=== PATIENT | male | born 1960 | race Caucasian/White ===

== ENCOUNTER → 2016-09-02 | Outpatient (CLI) | payer OTHER ==
--- NOTE | 2016-09-02 15:51 | XR ---
EXAMINATION TYPE: XR chest 2V DATE OF EXAM: 09/02/2016 3:44 PM COMPARISON: NONE HISTORY: Positive PPD skin test. TECHNIQUE: Frontal and lateral views of the chest are obtained. FINDINGS: There is low lung volumes with elevated left hemidiaphragm. There is no focal air space [place] city, pleural effusion, or pneumothorax seen. The cardiac silhouette size is enlarged. The osseous structures are intact. IMPRESSION: Cardiomegaly without acute pulmonary process.
== END | disposition home or self-care (01) ==
LOC: RADXRMAIN 15:29
PROVIDERS: ATTEND Dermatology MOHS-Micrographic Surgery
DX: I51.7 Cardiomegaly (principal); R76.11 Nonspecific reaction to tuberculin skin test without active tuberculosis
CPT/HCPCS: 71020

== ENCOUNTER → 2017-08-23 | Outpatient (CLI) | payer BC, OTHER ==
--- NOTE | 2017-08-23 22:36 | XR ---
EXAMINATION TYPE: XR abdomen 1V DATE OF EXAM: 08/23/2017 CLINICAL DATA: 56-year-old male follow-up left kidney stone, [facility] COMPARISON: None FINDINGS: Nonobstructive bowel gas pattern. Supine imaging limited for assessment of free air. A rounded phlebo lith is present on each side in the pelvis. Tiny 4 mm calcification left mid abdomen probably a left renal calculus. Mild stool burden. IMPRESSION: Suspected 4 mm left renal calculus. A rounded phlebolith is seen on each side of the pelvis.
== END | disposition home or self-care (01) ==
LOC: RADXRYALE 15:56
PROVIDERS: ATTEND Urology
DX: N20.0 Calculus of kidney (principal)
CPT/HCPCS: 74018

== ENCOUNTER → 2017-10-26 | Outpatient (CLI) | payer BC, OTHER ==
--- NOTE | 2017-10-27 06:36 | XR ---
EXAMINATION TYPE: XR KUB DATE OF EXAM: 10/26/2017 4:37 PM CLINICAL HISTORY: Left-sided kidney stone TECHNIQUE: Two supine KUB images of the abdomen are obtained. COMPARISON: Abdominal x-ray August 23, 2017 FINDINGS: There is stable 4 mm calculus mid pole left kidney at L1 level just below left 11th rib. Sy mmetric rounded densities in pelvis favor phleboliths. No significant change from prior. There is some paucity of bowel gas, visualized gas is noted in nondistended small and large bowel loo ps. Some spurring inferior L2 and L3 endplates is present. IMPRESSION: Suspect stable 4 mm left renal calculus.
== END | disposition home or self-care (01) ==
LOC: RADXRMAIN 16:19
PROVIDERS: ATTEND Urology
DX: N20.0 Calculus of kidney (principal)
CPT/HCPCS: 74018

== ENCOUNTER → 2017-11-25 | Outpatient (CLI) | payer BC, OTHER ==
--- NOTE | 2017-11-25 12:50 | MR ---
MR sacroiliac joints HISTORY: Sacroiliitis, pain Multiplanar multisequence imaging obtained through the sacroiliac joints Comparison to abdomen 10/26/2017 There is low intensity focus within the posterior left ilium on T1 and T2-weighted sequences which co rresponds to the sclerotic focus on plain film and possibly representing bone island, there is no loc al marrow edema. Sacroiliac joints show no erosion, ankylosis, or significant subchondral reactive ma rrow signal change. There is a posterior central disc herniation present at L5-S1 possibly contact the proximal S1 nerve roots bilaterally. There is a focus of increased signal on T1, low signal on T2-weighted sequences wi thin the left aspect of the L5 vertebral body measuring approximately 11 mm which may represent heman gioma. IMPRESSION: Degenerative disc disease, correlate for S1 radiculopathy. Benign-appearing foci within t he L5 vertebral body, left ilium, bone scan may be confirmatory. Sacroiliitis is not evident.
== END | disposition home or self-care (01) ==
LOC: RADMRIMAIN 09:43
PROVIDERS: ATTEND Physician Assistant Medical
DX: M51.36 Other intervertebral disc degeneration, lumbar region (principal); R93.7 Abnormal findings on diagnostic imaging of other parts of musculoskeletal system
CPT/HCPCS: 72195

== ENCOUNTER → 2019-04-24 | Outpatient (CLI) | payer BC ==
--- NOTE | 2019-04-25 07:26 | XR ---
EXAMINATION TYPE: XR lumbosacral spine min 4V DATE OF EXAM: 04/24/2019 CLINICAL HISTORY: Low back pain TECHNIQUE: Frontal, lateral, and oblique images of the lumbar spine are obtained. COMPARISON: None FINDINGS: There are 5 lumbar type vertebral bodies identified. Rudimentary 12th ribs are seen. The lumbar spine shows satisfactory alignment without evidence of acute fracture or dislocation. Vertebra l body heights and disk space heights are within normal limits. Mild multilevel degenerative changes are seen as intervertebral disc space narrowing at L5-S1 and mild multilevel facet arthropathy The o blique images appear within normal limits. The overlying soft tissue appears unremarkable. IMPRESSION: No acute fracture or dislocation is seen in the lumbar spine. Mild multilevel degenerati ve disc disease of the lumbar spine.
--- NOTE | 2019-04-25 07:40 | XR ---
EXAMINATION TYPE: XR cervical spine comp DATE OF EXAM: 04/24/2019 TECHNIQUE: Frontal, lateral, oblique, swimmers, and open mouth view of the cervical spine are obtaine d. HISTORY: M54.2 Cervicalgia COMPARISON: None FINDINGS: The cervical spine is visualized in its entirety from C1 thru the top of T1 level, it is s atisfactory in alignment without evidence of acute fracture or dislocation. The C1-C2 articulation is within normal limits on the open mouth view. Small anterior osteophytes are seen of the cervical spi ne at multiple levels as well as mild uncovertebral hypertrophy. Oblique images demonstrate mild neur al foraminal narrowing on the right at C4-C5 and centrally at C5-C6 and on the left at C6-C7 mildly. Prevertebral soft tissues are upper limits of normal. IMPRESSION: No acute fracture or malalignment is seen in the cervical spine. Mild multilevel degener ative disc disease as detailed above.
== END | disposition home or self-care (01) ==
LOC: RADXRMAIN 15:51
PROVIDERS: ATTEND Internal Medicine
DX: M48.02 Spinal stenosis, cervical region (principal); M50.30 Other cervical disc degeneration, unspecified cervical region; M51.36 Other intervertebral disc degeneration, lumbar region
CPT/HCPCS: 72050; 72110

== ENCOUNTER → 2019-05-08 | Outpatient (CLI) | payer BC ==
--- NOTE | 2019-05-09 07:10 | CT ---
EXAMINATION TYPE: CT soft tissue neck wo/w con DATE OF EXAM: 05/08/2019 HISTORY: enlarged lymph nodes. Cervicalgia and cough. COMPARISON: NONE CT DLP: 1401.5 mGycm. Automated Exposure Control for Dose Reduction was Utilized. TECHNIQUE: CT scan of the neck is performed without and with IV Contrast, patient injected with 100 mL of Isovue 300, axial images are obtained, coronal and sagittal reformatted images are reviewed. FINDINGS: Airway: No gross abnormality seen. Parotid/submandibular glands: No gross abnormality seen. Carotid/Vascular Structures: No significant abnormality. Osseous Structures: Slight scoliotic curvature. Other: Scattered prominent but subcentimeter lymph nodes throughout the neck bilaterally. No definiti ve abnormal greater than 1 cm lymph nodes. IMPRESSION: No suspicious mass or adenopathy.
== END ==
LOC: RADCTMAIN 16:31
PROVIDERS: ATTEND Internal Medicine
DX: R59.0 Localized enlarged lymph nodes (principal)
CPT/HCPCS: 70492; Q9967

== ENCOUNTER → 2019-05-21 | Outpatient (CLI) | payer BC ==
--- NOTE | 2019-05-21 15:17 | XR ---
EXAMINATION TYPE: XR chest 2V DATE OF EXAM: 05/21/2019 COMPARISON: 09/02/2016 HISTORY: Cough and shortness of breath TECHNIQUE: Frontal and lateral views of the chest are obtained. FINDINGS: Low lung volumes are redemonstrated. Low lung volumes exaggerate the pulmonary vasculature. There is no focal air space opacity, pleural effusion, or pneumothorax seen. The cardiac silhouette size is mildly enlarged. The osseous structures are intact. IMPRESSION: Low lung volumes accentuating the pulmonary vasculature. No acute cardiopulmonary proces s.
== END | disposition home or self-care (01) ==
LOC: RADXRMAIN 14:58
PROVIDERS: ATTEND Internal Medicine
DX: R05 Cough (principal); R06.02 Shortness of breath; R50.9 Fever, unspecified
CPT/HCPCS: 71046

== ENCOUNTER → 2019-06-11 | Outpatient (CLI) | payer BC ==
--- NOTE | 2019-06-11 11:35 | CT ---
EXAMINATION TYPE: CT soft tissue neck w con DATE OF EXAM: 06/11/2019 HISTORY: Rt neck swelling, lymphadenopathy per order COMPARISON: CT neck May 08, 2019 CT DLP: 639.9 mGycm. Automated Exposure Control for Dose Reduction was Utilized. TECHNIQUE: CT scan of the neck is performed with IV Contrast, patient injected with 100 mL of Isovue 300, axial images are obtained, coronal and sagittal reformatted images are reviewed. FINDINGS: Airway: No gross abnormality seen. Parotid/submandibular glands: No gross abnormality seen. Carotid/Vascular Structures: No significant plaque or stenosis carotid bulb level bilaterally Osseous Structures: Mild disc space narrowing lower cervical levels. Other: Prominent but subcentimeter lymph nodes throughout the neck bilaterally. No definitive greater than 1 cm neck adenopathy. No significant change from prior study. IMPRESSION: No significant new abnormality is seen. No definitive new abnormal adenopathy.
== END | disposition home or self-care (01) ==
LOC: RADCTMAIN 09:29
PROVIDERS: ATTEND Internal Medicine Hematology & Oncology
DX: R59.0 Localized enlarged lymph nodes (principal); J30.1 Allergic rhinitis due to pollen
CPT/HCPCS: 70491; Q9967

== ENCOUNTER → 2019-06-28 | Outpatient (CLI) | payer BC, OTHER ==
--- NOTE | 2019-06-28 18:33 | CONS ---
CONSULTATION DATE OF SERVICE: 06/28/2019 This patient is a 58-year-old gentleman who has been evaluated in the sleep center for possible obstructive sleep apnea-hypopnea syndrome. HISTORY OF PRESENT ILLNESS/SLEEP-WAKE EVALUATION: Patient's usual sleep schedule on weekdays is from 10:45 p.m. to 6 a.m., on weekends from 11:30 p.m. to 7:15 a.m. It takes him about 15 minutes to fall asleep. Usually no significant problems. No TV in bedroom. He usually sleeps on the side position by himself, so no clear information about his breathing and snoring during sleep. He wakes up from sleep 3 times with dry mouth, heartburn and nocturia. During the day sometimes the patient may feel sleepiness. [place] Sleepiness Scale is in normal range at 4. PAST MEDICAL HISTORY: Positive for hypertension, BPH, acid reflux, anxiety, psoriasis, allergies, psoriatic arthritis of the neck, back and feet. PAST SURGICAL HISTORY: Tonsillectomy, bilateral arthroscopic knee surgery, bilateral shoulder surgery and bilateral foot surgery. MEDICATIONS: Atenolol, Vasotec, cetirizine, omeprazole, tamsulosin, gabapentin, baby aspirin, Centrum Silver, injections. SOCIAL HISTORY: Negative for smoking. Alcohol consumption negative. FAMILY HISTORY: Hypertension, arthritis, sinus problems, bronchitis, acid reflux. REVIEW OF SYSTEMS: Multiple awakenings from sleep, itching. PHYSICAL EXAMINATION: GENERAL: A pleasant gentleman without distress. VITAL SIGNS: BP 120/79, HR 64, RR 16, height 6 feet 1 inch, weight 327, BMI 43.1, temperature 98.0, oxygen saturation at room air 98%. HEENT: PERRLA, EOMI. Evaluation of oropharynx showed tongue protrudes midline. Extremely low position of soft palate. Mallampati IV. Restriction of nasal breathing. NECK: Supple. No JVD. Thyroid is not palpable. Wide neck; 18-1/2 inches in circumference. LUNGS: Clear to percussion and to auscultation. Good air exchange. No wheezing or rhonchi. HEART: S1, S2 regular. No murmurs, gallops or rubs. ABDOMEN: Obese. EXTREMITIES: No clubbing or cyanosis. Psoriatic plaques on the skin. One plus bilateral ankle edema. Some deformity of the fingers, mostly on the left side. IMPRESSION: 1. No information about snoring; patient sleeps by himself. Multiple awakenings from sleep with nocturia, extremely low position of soft palate, Mallampati IV, wide neck, 18-1/2 inches in circumference; obstructive sleep apnea-hypopnea syndrome. 2. Obesity; body mass index 43.1. 3. Hypertension. 4. Benign prostatic hypertrophy. 5. Acid reflux. 6. Allergies. 7. History of anxiety. 8. Psoriasis of the skin. 9. History of psoriatic arthritis of the neck, back, feet and arms. 10.Status post tonsillectomy. 11.Status post bilateral arthroscopic knee surgery. 12.Status post bilateral arthroscopic shoulder surgery. 13.Status post bilateral arthroscopic foot surgery. 14.Deformity of the arms. PLAN: 1. Polysomnography for evaluation of patient's breathing during sleep. 2. CPAP/BiPAP titration if sleep study confirms obstructive sleep apnea-hypopnea syndrome. 3. Preferable position during sleep on the side. 4. No driving if patient feels any sleepiness. 5. I will see patient for follow up visit to explain results of testing and following plan. Thank you very much for referring this patient for consultation. Sincerely, Fred Hood MD, PhD, FAASM Diplomat of [employer] Medical Services Coordinator of [facility] [place] [facility] / JONATHAN: [id number] /
== END | disposition home or self-care (01) ==
LOC: SLEEP 14:48
PROVIDERS: ATTEND Internal Medicine
DX: I10 Essential (primary) hypertension (principal); N40.0 Benign prostatic hyperplasia without lower urinary tract symptoms; K21.9 Gastro-esophageal reflux disease without esophagitis; E66.9 Obesity, unspecified; Z79.899 Other long term (current) drug therapy; Z79.82 Long term (current) use of aspirin; Z68.41 Body mass index [BMI] 40.0-44.9, adult; Z87.2 Personal history of diseases of the skin and subcutaneous tissue; Z86.59 Personal history of other mental and behavioral disorders; Z96.611 Presence of right artificial shoulder joint; Z96.612 Presence of left artificial shoulder joint; Z96.653 Presence of artificial knee joint, bilateral; Z96.661 Presence of right artificial ankle joint; Z96.662 Presence of left artificial ankle joint
CPT/HCPCS: 99211

== ENCOUNTER 2020-05-26 09:07 | Day surgery (SDC) | payer BC ==
[2020-05-23 11:26] VITALS: BMI 38.7
[~2020-05-26 09:07] MED LIST: LACTATED RINGERS 1,000 ML IV SCH; LIDOCAINE 1% (10MG/ML) FOR IV START INTRADERMA PRN
[2020-05-26 10:15] VITALS: TEMP 97.7
[2020-05-26] MEDS ORDERED: LIDOCAINE 1% INJ 10MG/ML (20 ML MDV) ONE (11:04)
[2020-05-26] MEDS ORDERED: PROPOFOL 10 MG/ML 20 ML VIAL IV ONE (11:04)
--- NOTE | 2020-05-26 11:16 | P.PCN ---
Date of Procedure: 05/26/20 Procedure(s) Performed: BRIEF HISTORY: Patient is a 59-year-old, pleasant, male with long-standing history of GERD and Berry's esophagus and the fundus as well as upper endoscopy today. Last EGD was 2 years ago.. PROCEDURE PERFORMED: Esophagogastroduodenoscopy with biopsy. PREOPERATIVE DIAGNOSIS: Long-standing history of GERD/Berry's esophagus. IV sedation per anesthesia. PROCEDURE: After informed consent was obtained, the patient was brought into the endoscopy unit. IV sedation was administered by Anesthesia under continuous monitoring. Initially the Olympus GIF-140 video endoscope was inserted into the mouth. Esophagus intubated without any difficulty. It was gradually advanced into the stomach and duodenum and carefully examined. The bulb and the second part of the duodenum appeared normal. The scope at this time was withdrawn to the stomach, adequately insufflated with air, and upon careful examination, mucosa of the antrum, body, cardia and the fundus appeared normal. The scope was then withdrawn into the esophagus. Moderate size hiatal hernia noted. The GE junction was located at 40 cm from the incisors. There was long segment of Berry's esophagus extending from 35-40 cm from the incisors. The mucosa appeared normal with no nodules, erosions or ulcerations seen. Multiple biopsies were done from the segment of Berry's esophagus to rule out dysplasia. The rest of the esophagus appeared normal. There were no erosions or ulcerations seen and the patient tolerated the procedure well. IMPRESSION: 1. Long segment Segment Berry's esophagus extending from 35-40 cm to the incisors status post multiple biopsies to rule out dysplasia. 2. Moderate size hiatal hernia. RECOMMENDATIONS: The findings of this examination were discussed with the patient as well as his family. He was advised to follow with the biopsy results. If the biopsy confirms the presence of Berry's esophagus with no dysplasia he can have a repeat upper endoscopy in 2-3 years..
[2020-05-26 11:27] VITALS: RESP 16
[2020-05-26 11:36] VITALS: BP 130/86; PULSE 60
== END 2020-05-26 11:58 | disposition home or self-care (01) ==
LOC: ORWHC2ENDO 09:07
PROVIDERS: ATTEND Internal Medicine Gastroenterology
DX: K22.70 Barrett's esophagus without dysplasia (principal); K21.9 Gastro-esophageal reflux disease without esophagitis; K44.9 Diaphragmatic hernia without obstruction or gangrene; N40.0 Benign prostatic hyperplasia without lower urinary tract symptoms; Z98.890 Other specified postprocedural states; Z79.899 Other long term (current) drug therapy; Z79.82 Long term (current) use of aspirin; Z79.1 Long term (current) use of non-steroidal anti-inflammatories (NSAID)
CPT/HCPCS: 88305; 43239; J2001; J2704

== ENCOUNTER 2020-10-06 18:38 | Emergency (ER) | payer BC ==
[2020-10-06 18:47] VITALS: BP 134/79; PULSE 74; RESP 16
[2020-10-06] MEDS ORDERED: LIDOCAINE 1% INJ 10MG/ML (20 ML MDV) SQ ONE (19:08)
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
--- NOTE | 2020-10-06 19:43 | CT ---
EXAMINATION TYPE: CT brain wo con DATE OF EXAM: 10/06/2020 COMPARISON: None HISTORY: CT DLP: mGycm Automated exposure control for dose reduction was used. Images obtained of the brain without contrast. There is 1.5 cm hypodensity in the right internal capsule related to old lacunar infarct. There is no mass effect nor midline shift. There is no sign of intracranial hemorrhage. Calvarium is intact. Sku ll base is intact. 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 No acute intracranial abnormality.
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
== END 2020-10-06 20:48 | disposition home or self-care (01) ==
LOC: EC 18:38
DX: S01.412A Laceration without foreign body of left cheek and temporomandibular area, initial encounter (principal); K21.9 Gastro-esophageal reflux disease without esophagitis; I10 Essential (primary) hypertension; Z86.73 Personal history of transient ischemic attack (TIA), and cerebral infarction without residual deficits; W50.0XXA Accidental hit or strike by another person, initial encounter; Y93.64 Activity, baseball
CPT/HCPCS: 70486; 70450; 99284; 12001; J2001

== ENCOUNTER 2024-07-14 14:21 | Observation (INO) | payer BC ==
--- NOTE | 2024-07-14 14:37 | ED ---
General Adult HPI - General Chief complaint: Extremity Injury, Lower Stated complaint: rt ankle fracture Time Seen by Provider: 07/14/24 14:26 Source: patient, RN/MD, EMS, RN notes reviewed Mode of arrival: EMS Limitations: no limitations - History of Present Illness Initial comments: Patient is a 63-year-old male present to the emergency department as a transfer from [facility]. Patient was rafting basketball when he inverted his right ankle. Patient went there and they did notice fracture on x-ray. Patient was splinted and transferred here for orthopedic care. They did attempt to ambulate the patient with crutches however he is unable to secondary to chronic ankle problems on the other side - Related Data Home Medications Medication Instructions Recorded Confirmed Aspirin [Adult Low Dose Aspirin EC] 81 mg PO DAILY 05/23/20 05/23/20 Cetirizine HCl 10 mg PO DAILY 05/23/20 05/23/20 Enalapril Maleate 5 mg PO DAILY 05/23/20 05/23/20 Gabapentin 300 mg PO TID 05/23/20 05/23/20 Ketoconazole [Nizoral A-D] 1 applic TOPICAL DAILY 05/23/20 05/23/20 Multivit-Min/FA/Lycopen/Lutein 1 each PO DAILY 05/23/20 05/23/20 [Centrum Silver Tablet] Pantoprazole [Protonix] 40 mg PO DAILY 05/23/20 05/23/20 atenoloL 25 mg PO DAILY 05/23/20 05/23/20 Allergies Allergy/AdvReac Type Severity Reaction Status Date / Time No Known Allergies Allergy Verified 07/14/24 14:29 Review of Systems ROS Statement: Those systems with pertinent positive or pertinent negative responses have been documented in the HPI. ROS Other: All systems not noted in ROS Statement are negative. Constitutional: Denies: fever Eyes: Denies: eye pain ENT: Denies: ear pain Cardiovascular: Denies: chest pain Endocrine: Denies: fatigue Gastrointestinal: Denies: abdominal pain Neurological: Denies: headache, weakness, confusion Past Medical History Past Medical History: GERD/Reflux, Hypertension, Skin Disorder Additional Past Medical History / Comment(s): Psoriasis, Psoriatic Arthritis, fingers crooked. Wears support hose, bad circulation in legs, hx kidney stones. History of Any Multi-Drug Resistant Organisms: None Reported Additional Past Surgical History / Comment(s): EGD. Kidney stone surgery. Past Anesthesia/Blood Transfusion Reactions: Family History of Problems w/ Anesthesia Additional Past Anesthesia/Blood Transfusion Reaction / Comment(s): "Mom heart went out of rhythm." Past Psychological History: No Psychological Hx Reported Smoking Status: Never smoker Past Alcohol Use History: Rare Past Drug Use History: None Reported - Past Family History Mother Family Medical History: Cancer Additional Family Medical History / Comment(s): Bladder cancer. General Exam Limitations: no limitations General appearance: alert, in no apparent distress Head exam: Present: atraumatic Eye exam: Present: normal appearance Neck exam: Present: normal inspection. Absent: tenderness Respiratory exam: Present: normal lung sounds bilaterally Cardiovascular Exam: Present: regular rate, normal rhythm GI/Abdominal exam: Present: soft. Absent: tenderness Extremities exam: Present: other (Right lower leg splinted. Toes with good movement and sensation and cap refill) Neurological exam: Present: alert. Absent: motor sensory deficit Psychiatric exam: Present: normal affect, normal mood Skin exam: Present: normal color Course Vital Signs 07/14/24 14:24 Temperature 98 F Pulse Rate 94 Respiratory 18 Rate Blood Pressure 120/79 O2 Sat by Pulse 99 Oximetry Medical Decision Making - Medical Decision Making MDM back was pt. sent in by a medical professional or institution (, PA, BOAT WORKER, urgent care, hospital, or correction...) When possible be specific @ -Patient was sent from [facility], [place] Did you speak to anyone other than the patient for history (EMS, parent, family, police, friend...)? What history was obtained from this source @ -I did speak with transferring physician, Dr. Fall Did you review nursing and triage notes (agree or disagree)? Why? @ -I reviewed and agree with nursing and triage notes Were old charts reviewed (outside hosp., previous admission, EMS record, old EKG, old radiological studies, urgent care reports/EKG's, correction records)? Report findings @ -Chart reviewed from [facility] including films Differential Diagnosis (chest pain, altered mental status, abdominal pain women, abdominal pain men, vaginal bleeding, weakness, fever, dyspnea, syncope, headache, dizziness, GI bleed, back pain, seizure, CVA, palpatations, mental health, musculoskeletal)? @ -MDM differential EKG interpreted by me (3pts min.). @ -As above X-rays interpreted by me (1pt min.). @ -X-ray shows bimalleolar fracture CT interpreted by me (1pt min.). @ -None done U/S interpreted by me (1pt. min.). @ -None done What testing was considered but not performed or refused? (CT, X-rays, U/S, l abs)? Why? @ -None What meds were considered but not given or refused? Why? @ -None Did you discuss the management of the patient with other professionals (professionals i.e. , PA, BOAT WORKER, lab, RT, psych nurse, social research assistant, gig tender, teacher, mobile patrol officer, director case)? Give summary @ -Case discussed with Dr. Hugo send who will admit for orthopedic Was smoking cessation discussed for >3mins.? @ -No Was critical care preformed (if so, how long)? @ -No Were there social determinants of health that impacted care today? How? (Homelessness, low income, unemployed, alcoholism, drug addiction, transportation, low edu. Level, literacy, decrease access to med. care, group home, rehab)? @ -No Was there de-escalation of care discussed even if they declined (Discuss DNR or withdrawal of care, Hospice)? DNR status @ -No What co-morbidities impacted this encounter? (DM, HTN, Smoking, COPD, CAD, Cancer, CVA, ARF, Chemo, Hep., AIDS, mental health diagnosis, sleep apnea, morbid obesity)? @ -Patient unable to ambulate on his left ankle secondary to chronic ankle problems Was patient admitted / discharged? Hospital course, mention meds given and route, prescriptions, significant lab abnormalities, going to OR and other pertinent info. @ -Patient presents as transfer for ankle fracture needing orthopedics and surgery. Patient unable to ambulate and therefore will need admission. Patient updated on results and plan. Admission orders written. Undiagnosed new problem with uncertain prognosis? @ -No Drug Therapy requiring intensive monitoring for toxicity (Heparin, Nitro, Insulin, Cardizem)? @ -No Were any procedures done? @ -No Diagnosis/symptom? @ -Right ankle fracture Acute, or Chronic, or Acute on Chronic? @ -Acute Uncomplicated (without systemic symptoms) or Complicated (systemic symptoms)? @ -Complicated with inability to ambulate Side effects of treatment? @ -No Exacerbation, Progression, or Severe Exacerbation? @ -No Poses a threat to life or bodily function? How? (Chest pain, [place], [place], pneumonia, PE, COPD, DKA, ARF, appy, cholecystitis, CVA, Diverticulitis, Homicidal, Suicidal, threat to staff... and all critical care pts) @ -No Disposition Clinical Impression: Ankle fracture, right Disposition: ADMITTED IP TO THIS HOSP Is patient prescribed a controlled substance at d/c from ED?: No Referrals: Peter Lua DO [Primary Care Provider] - 1-2 days Time of Disposition: 15:03
[2024-07-14] MEDS ORDERED: LORazepam 0.5 MG TAB PO PRN (15:03)
[2024-07-14] MEDS ORDERED: NALOXONE 0.4 MG/ML 1 ML VIAL IV PRN (15:03)
[2024-07-14] MEDS ORDERED: ACETAMINOPHEN TAB 325 MG TAB PO PRN (15:03)
[2024-07-14] MEDS ORDERED: traMADol 50 MG TAB PO PRN (15:03)
[2024-07-14 15:46] LABS: Basophils % (A) 1 %; Eosinophils # (A) 0.1 k/uL (0-0.7); Eosinophils % (A) 2 %; HCT 38.9 % (39.0-53.0); HGB 12.8 gm/dL (13.0-17.5); Lymphocytes # (A) 1.6 k/uL (1.0-4.8); Lymphocytes % (A) 23 %; MCH 28.9 pg (25.0-35.0); MCHC 32.8 g/dL (31.0-37.0); MCV 87.9 fL (80.0-100.0); Mean Platelet Volume 7.1; Monocytes # (A) 0.6 k/uL (0-1.0); Monocytes % (A) 8 %; Neutrophils # (A) 4.7 k/uL (1.3-7.7); Neutrophils % (A) 65 %; Platelet Count 383 k/uL (150-450); RBC 4.42 m/uL (4.30-5.90); RDW 13.1 % (11.5-15.5); WBC 7.2 k/uL (3.8-10.6)
[2024-07-14 16:03] LABS: ALT 19 U/L (4-49); AST 18 U/L (17-59); African American GFR (CKD) >90 (>60 ml/min/1.73 sqM); Alkaline Phosphatase 86 U/L (38-126); Blood Urea Nitrogen 30 mg/dL (9-20); Calcium 9.2 mg/dL (8.4-10.2); Carbon Dioxide 24 mmol/L (22-30); Chloride 102 mmol/L (98-107); Glucose 98 mg/dL (74-99); Non-African American GFR(CKD) 83 (>60 ml/min/1.73 sqM); Potassium 3.9 mmol/L (3.5-5.1); Total Bilirubin 0.6 mg/dL (0.2-1.3); Total Protein 6.7 g/dL (6.3-8.2)
[2024-07-14 16:12] LABS: Anion Gap 9 mmol/L; Sodium 135 mmol/L (137-145)
[2024-07-14] MEDS: PANTOPRAZOLE 40 MG TABLET PO SCH (17:01)
[2024-07-14] MEDS: HYDROmorphone 1 MG/ML 1 ML SYRINGE IVP PRN (17:02)
[2024-07-14] MEDS: HYDROcodone/APAP 5-325MG 1 EACH TAB PO PRN (21:35)
[2024-07-14] MEDS: FAMOTIDINE 20 MG TAB PO SCH (21:35)
[2024-07-14] MEDS: SYMBICORT 160-4.5 MCG INHALER INHALATION SCH (21:49)
--- NOTE | 2024-07-15 07:07 | XR ---
EXAMINATION TYPE: XR chest 1V DATE OF EXAM: 07/15/2024 5:46 AM COMPARISON: Chest radiographs from 05/21/2019 TECHNIQUE: XR chest 1V Frontal view of the chest. CLINICAL INDICATION:Male, 63 years old with history of pre op; FINDINGS: Patient is rotated which limits evaluation. Lungs/Pleura: No pleural effusion or pneumothorax. Diffuse interstitial opacities. Heart/mediastinum: Cardiomediastinal silhouette is enlarged and stable. Musculoskeletal: No acute osseous pathology. IMPRESSION: Cardiomegaly with diffuse interstitial edema. Correlate for CHF exacerbations/volume overload. [facility], , 07/15/2024 7:02 AM
--- NOTE | 2024-07-15 07:47 | P.PN ---
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 It was my pleasure to have seen and examined João Larry. In our visit today we have had a chance to go over subjective complaints, physical examination findings and treatments including the natural course history without intervention and various interventional options. Their imaging demonstrates the following findings: On a physical exam, João Larry demonstrates pain with motion of RLE, which is NV intact at this time. I have explained to the patient that this fracture needs stabilization. Based on the patient's imaging, physical exam, and the rapid progression and disabling nature of her symptoms, at this time I recommend surgery in the form of a: OPEN REDUCTION AND INTERNAL FIXATION OF RIGHT ANKLE I discussed the risk and benefits of this procedure at length with [patient]. Questions were invited and answered, and the patient wishes to proceed as outlined below. Currently, I am recommendin. OPEN REDUCTION AND INTERNAL FIXATION OF RIGHT ANKLE 2. Review of surgical risks and benefits as well as an educational packet on the proposed surgical procedure. 3. Appropriate preoperative work up and clearances to be obtained. Risks: All surgical procedures come with inherent risks, including those related to positioning, anesthesia, intraoperative findings, and postoperative complications. It is important to understand that surgery does not come with any guarantee of a successful outcome as complications and adverse events are always possible. The patient was given a handout discussing the surgical procedure and risks associated with the intervention, both of which were discussed with the patient. These risks include but are not limited to the following: - Experiencing same, different or even worse symptoms compared to before surgery. - Requiring further surgery or other forms of treatment presently or at some time in the future . - On an extreme but fortunately relatively rare basis severe complications such as blindness, stroke, heart attack, temporary and/or permanent nerve injury, paralysis, coma, or may occur, sometimes without known explanation. - Surgical complications may include but are not limited to risk of infection, fluid accumulation in the surgical dissection site, including a seroma or hematoma, that requires additional surgery, wound drainage, bleeding, new numbness or weakness, vision changes/loss, spinal fluid leakage, non-healing and/or infected incision, headaches, difficulty or inability to swallow, hoarseness, hemopneumothorax, pneumothorax, injury to nerves, spinal cord, blood vessels, lymphatics or other vital organs (i.e., bowel injury, injury to the great vessels); heterotopic bone formation; complications related to the hardware such as screws, rods, including misplaced hardware, device failure, hardware fracture/breakage, or hardware loosening; retained surgical instrumentations or devices and the need for further surgery. - Medical risks of the planned surgery include but are not limited to generalized Infections to the whole body or local areas outside of the surgical site (sepsis), heart attack, bleeding, anaphylaxis, meningitis, seizure, epilepsy, hearing loss, burn lara, laceration of the head or other areas of the body, bruising, hypersensitivity of the skin, bladder over distension; allergic reaction; shoulder injury related to positioning; fat, blood and air clots to other areas of the body like heart, lungs, brain; failure of internal organs such as lungs, kidneys, liver and excessive bleeding. If blood transfusions are necessary, note that transfusions may cause intolerance reactions such as anaphylaxis or other complex reactions. Despite best efforts, the results of surgery might not heal in terms of bone, soft tissues such as skin, fascia, ligaments, and joints. [facility] has multiple operating rooms with single and overlapping rooms running daily. They currently function under the required guidelines as produced by the Senate Finance Committee with regards to the overlapping rooms and will continue to comply with changes to this policy as they occur. The requirements include and are complied with as follows: (1) the critical portions of the overlapping rooms will not occur at the same time, (2) the attending physician will be physically present during the critical portions of the procedure and immediately available during the entire case, and (3) a back-up attending is designated should the primary attending not be immediately available. The patient has had a chance to review all the listed information, has been given print outs detailing this information, and has had all his/her questions answered to their satisfaction. It was my pleasure to have seen and examinedJoão Larry. In our visit today we have had a chance to go over my understanding of our patient's current condition, the natural course history without intervention and various interventional options. Questions were invited and answered, and the patient wishes to proceed as outlined above. I have seen and examined the patient for 25 minutes and we have spent more than 50% of the time in repeat and detailed counseling about the patient's condition, its natural course history without and as much as can be predicted with surgery and re-review of various surgical tr eatment options. In conclusion, João Larry has requested we proceed with the above suggested surgery and are willing to accept risks and limitations of the suggested surgery as to the nature of the disease process and our best attempts at treatment for the condition. Thank you again for allowing us to be part of your patient's care. Please don't hesitate to contact me if you have any further questions. Signed and authenticated by: Dakotah Hamm [facility] [address], [address] [address]
--- NOTE | 2024-07-15 08:11 | P.HPOR ---
History of Present Illness H&P Date: 07/15/24 Chief Complaint: Right ankle pain after a fall History of Presenting Illness Patient is a pleasant 63-year-old male who presented as a transfer from [facility] after a fall. Imaging was performed at [facility] that demonstrated a fracture of the right ankle, patient was splinted and transferred for care. 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 Patient states he was unable to ambulate after fall, he does have chronic left ankle pain and was unable to use crutches. Patient states that he is normally independent without any assistive devices. Patient has a past medical history of hypertension and GERD. Patient denies any orthopedic history. Review of Systems Pertinent positives and negatives as discussed in HPI, a complete review of systems was performed and all other systems are negative. Physical Examination Inspection: Negative for any open fractures, limited exam due to splint. Sensation: Sensation is equal, symmetric, bilaterally intact throughout the upper and lower extremities Palpation: Tenderness to palpation over the right ankle due to fracture. Range of motion: Patient does have full range of motion bilateral upper and left lower extremities on exam. Limited range of motion of the right ankle due to fracture and pain Motor: Right: shoulder abduction 5/5, elbow flexors 5/5, wrist dorsiflexors 5/5. finger abductor 5/5, film rental clerk 5/5, hip flexor 5/5, knee flexor 4/5, ankle dorsiflexor LAKIA, ankle plantarflexion LAKIA and extensor hallucis 5/5. Left: shoulder abduction 5/5, elbow flexors 5/5, wrist dorsiflexors 5/5. finger abductor 5/5, film rental clerk 5/5, hip flexor 5/5, knee flexor 5/5, ankle dorsiflexor 5/5, ankle plantarflexion 5/5 and extensor hallucis 5/5. Special tests: Negative Homans bilaterally. Negative Jared bilaterally. Negative clonus bilaterally. Neurovascular: Radial pulse intact, 2+ bilaterally. Cap refill under 3 seconds in digits upper extremities. Assessment Fall from standing Right ankle fracture Plan At this time we recommend surgical intervention of right ankle ORIF that is scheduled for tomorrow 07/16/24. Patient will be n.p.o. at midnight. 2. Appreciate medical management 3. Pain management - IV Dilaudid, Utilize ice therapy 20min every hour as needed. 4. GI prophylaxis -senna 5. DVT prophylaxis -Lovenox will be ordered post op 6. PT/OT - NWB RLE, utilize walker 7. Appreciate consult. I reviewed and discussed this case with my attending Dr. Young, whom has reviewed this chart and films and is in agreement with assessment and plan of ca re as outlined above. I have personally seen and examined the patient, performed the documentation and the assessment and plan as written. Number of minutes spent on the visit: 30m. Past Medical History Past Medical History: GERD/Reflux, Hypertension, Skin Disorder Additional Past Medical History / Comment(s): Psoriasis, Psoriatic Arthritis, fingers crooked. Wears support hose, bad circulation in legs, hx kidney stones. History of Any Multi-Drug Resistant Organisms: None Reported Additional Past Surgical History / Comment(s): EGD. Kidney stone surgery, nose surgery Past Anesthesia/Blood Transfusion Reactions: Family History of Problems w/ Anesthesia Additional Past Anesthesia/Blood Transfusion Reaction / Comment(s): "Mom heart went out of rhythm." Past Psychological History: No Psychological Hx Reported Smoking Status: Never smoker Past Alcohol Use History: Rare Past Drug Use History: None Reported - Past Family History Mother Family Medical History: Cancer Additional Family Medical History / Comment(s): Bladder cancer. Medications and Allergies Home Medications Medication Instructions Recorded Confirmed Type Aspirin [Adult Low Dose Aspirin EC] 81 mg PO DAILY 05/23/20 07/14/24 History Gabapentin 300 mg PO DAILY 05/23/20 07/14/24 History Pantoprazole [Protonix] 40 mg PO BID 05/23/20 07/14/24 History Albuterol Inhaler [Ventolin Hfa 2 puff INHALATION RT-Q4H PRN 07/14/24 07/14/24 History Inhaler] Budesonide/Formoterol Fumarate 2 puff INHALATION RT-BID 07/14/24 07/14/24 History [Symbicort 160-4.5 Mcg Inhaler] Celecoxib [CeleBREX] 100 mg PO BID 07/14/24 07/14/24 History Cetirizine HCl [Zyrtec] 10 mg PO DAILY 07/14/24 07/14/24 History Fluticasone Nasal Draper [Flonase 1 - 2 spray EA NOSTRIL DAILY PRN 07/14/24 07/14/24 History Nasal Draper] Furosemide [Lasix] 20 mg PO DAILY 07/14/24 07/14/24 History Metaxalone [Skelaxin] 800 mg PO DAILY 07/14/24 07/14/24 History Montelukast [Singulair] 10 mg PO DAILY 07/14/24 07/14/24 History Mv-Min/Folic/K1/Lycopen/Lutein 1 tab PO DAILY 07/14/24 07/14/24 History [Centrum Silver Men Tablet] Potassium Chloride ER [K-Dur 10] 10 meq PO DAILY 07/14/24 07/14/24 History Semaglutide [Rybelsus] 7 mg PO DAILY 07/14/24 07/14/24 History Tamsulosin [Flomax] 0.4 mg PO DAILY 07/14/24 07/14/24 History Valsartan/Hydrochlorothiazide 1 tab PO DAILY 07/14/24 07/14/24 History [Valsartan-Hctz 160-12.5 mg Tab] Allergies Allergy/AdvReac Type Severity Reaction Status Date / Time No Known Allergies Allergy Verified 07/14/24 15:35 Results - Labs Labs: Abnormal Lab Results - Last 24 Hours (Table) 07/14/24 07/14/24 Range/Units 15:34 15:34 Hgb 12.8 L (13.0-17.5) gm/dL Hct 38.9 L (39.0-53.0) % Sodium 135 L (137-145) mmol/L BUN 30 H (9-20) mg/dL H & H 07/14/24 Range/Units 15:34 Hgb 12.8 L (13.0-17.5) gm/dL Hct 38.9 L (39.0-53.0) % Result Diagrams: 07/14/24 15:34 07/14/24 15:34
[2024-07-15 09:11] LABS: Basophils # (A) 0.06 X 10*3/uL (0.00-0.10); Basophils % (A) 0.8 %; Eosinophils # (A) 0.19 X 10*3/uL (0.04-0.35); Eosinophils % (A) 2.6 %; HCT 38.2 % (39.6-50.0); HGB 12.5 g/dL (13.0-17.0); Lymphocytes # (A) 1.62 X 10*3/uL (0.90-5.00); Lymphocytes % (A) 22.3 %; MCHC 32.7 g/dL (32.0-37.0); MCV 88.6 FL (80.0-97.0); Mean Platelet Volume 10.4 FL (9.5-12.2); Monocytes # (A) 1.04 X 10*3/uL (0.20-1.00); Monocytes % (A) 14.3 %; NRBC Per 100 WBC 0 X 10*3/uL (0.00-0.01); Neutrophils # (A) 4.32 X 10*3/uL (1.80-7.70); Neutrophils % (A) 59.4 %; Platelet Count 385 X 10*3/uL (140-440); RBC 4.31 X 10*6/uL (4.40-5.60); RDW 12.8 % (11.5-14.5); WBC 7.27 X 10*3/uL (4.50-10.00)
[2024-07-15] MEDS: NON FORMULARY DRUG (Semaglutide [Rybelsus] 7 MG Tablet) PO SCH (09:13)
[2024-07-15] MEDS: TAMSULOSIN 0.4 MG CAP.ER.24H PO SCH (09:20)
[2024-07-15] MEDS: GABAPENTIN 300 MG CAP PO SCH (09:20)
[2024-07-15] MEDS: CYCLOBENZAPRINE 10 MG TAB PO SCH (09:20)
[2024-07-15] MEDS: LORATADINE 10 MG TAB PO SCH (09:20)
[2024-07-15] MEDS: POTASSIUM CHLORIDE ER 10 MEQ TAB.ER.PRT PO SCH (09:21)
[2024-07-15] MEDS: hydroCHLOROthiazide 12.5 MG CAP PO SCH (09:21)
[2024-07-15] MEDS: MULTIVITAMINS, THERA 1 EACH TAB PO SCH (09:21)
[2024-07-15] MEDS: MONTELUKAST 10 MG TAB PO SCH (09:21)
[2024-07-15] MEDS: FUROSEMIDE 20 MG TAB PO SCH (09:21)
[2024-07-15] MEDS: VALSARTAN 160 MG TAB PO SCH (09:24)
[2024-07-15 09:29] LABS: BUN/Creat Ratio 22.67 Ratio (12.00-20.00); Blood Urea Nitrogen 20.4 mg/dL (9.0-27.0); Glucose 120 mg/dL (70-110)
[2024-07-15 09:30] LABS: Carbon Dioxide 25.8 mmol/L (21.6-31.8); Chloride 102 mmol/L (96-109); Potassium 3.8 mmol/L (3.5-5.5); Sodium 139 mmol/L (135-145)
--- NOTE | 2024-07-15 15:21 | P.CONS ---
History of Present Illness - Reason for Consult Consult date: 07/14/24 Medical clearance for surgery/medical management - Chief Complaint Right ankle fracture - History of Present Illness 63-year-old male present, history of hypertension, GERD, presented to the emerge ncy department as a transfer from [facility]. Patient was rafting basketball when he inverted his right ankle. Patient went there and they did notice fracture on x-ray. Patient was splinted and transferred here for orthopedic care. They did attempt to ambulate the patient with crutches however he is unable to secondary to chronic ankle problems on the other side Blood work completed in ED reveals WBC of 7.2, hemoglobin of 12.8 and platelet count of 383, sodium 135, potassium 3.9, BUNs/creatinine of 30/0.97, EKG interpreted by myself shows sinus rhythm with a rate of 98. Normal intervals. Normal axis. Normal QRS. No acute ST change. Review of Systems REVIEW OF SYSTEMS: CONSTITUTIONAL: No fever, no malaise, no fatigue. HEENT: No recent visual problems or hearing problems. Denied any sore throat. CARDIOVASCULAR: No chest pain, orthopnea, PND, no palpitations, no syncope. PULMONARY: No shortness of breath, no cough, no hemoptysis. GASTROINTESTINAL: No diarrhea, no nausea, no vomiting, no abdominal pain. NEUROLOGICAL: No headaches, no weakness, no numbness. HEMATOLOGICAL: Denies any bleeding or petechiae. GENITOURINARY: Denies any burning micturition, frequency, or urgency. MUSCULOSKELETAL/RHEUMATOLOGICAL: Denies any joint pain, swelling, or any muscle pain. ENDOCRINE: Denies any polyuria or polydipsia. The rest of the 14-point review of systems is negative. Past Medical History Past Medical History: GERD/Reflux, Hypertension, Skin Disorder Additional Past Medical History / Comment(s): Psoriasis, Psoriatic Arthritis, fingers crooked. Wears support hose, bad circulation in legs, hx kidney stones. History of Any Multi-Drug Resistant Organisms: None Reported Additional Past Surgical History / Comment(s): EGD. Kidney stone surgery, nose surgery Past Anesthesia/Blood Transfusion Reactions: Family History of Problems w/ Anesthesia Additional Past Anesthesia/Blood Transfusion Reaction / Comm: "Mom heart went out of rhythm." Past Psychological History: No Psychological Hx Reported Smoking Status: Never smoker Past Alcohol Use History: Rare Past Drug Use History: None Reported - Past Family History Mother Family Medical History: Cancer Additional Family Medical History / Comment(s): Bladder cancer. Medications and Allergies Home Medications Medication Instructions Recorded Confirmed Type Aspirin [Adult Low Dose Aspirin EC] 81 mg PO DAILY 05/23/20 07/14/24 History Gabapentin 300 mg PO DAILY 05/23/20 07/14/24 History Pantoprazole [Protonix] 40 mg PO BID 05/23/20 07/14/24 History Albuterol Inhaler [Ventolin Hfa 2 puff INHALATION RT-Q4H PRN 07/14/24 07/14/24 History Inhaler] Budesonide/Formoterol Fumarate 2 puff INHALATION RT-BID 07/14/24 07/14/24 History [Symbicort 160-4.5 Mcg Inhaler] Celecoxib [CeleBREX] 100 mg PO BID 07/14/24 07/14/24 History Cetirizine HCl [Zyrtec] 10 mg PO DAILY 07/14/24 07/14/24 History Fluticasone Nasal [place] [Flonase 1 - 2 spray EA NOSTRIL DAILY PRN 07/14/24 07/14/24 History Nasal [place]] Furosemide [Lasix] 20 mg PO DAILY 07/14/24 07/14/24 History Metaxalone [Skelaxin] 800 mg PO DAILY 07/14/24 07/14/24 History Montelukast [Singulair] 10 mg PO DAILY 07/14/24 07/14/24 History Mv-Min/Folic/K1/Lycopen/Lutein 1 tab PO DAILY 07/14/24 07/14/24 History [Centrum Silver Men Tablet] Potassium Chloride ER [K-Dur 10] 10 meq PO DAILY 07/14/24 07/14/24 History Semaglutide [Rybelsus] 7 mg PO DAILY 07/14/24 07/14/24 History Tamsulosin [Flomax] 0.4 mg PO DAILY 07/14/24 07/14/24 History Valsartan/Hydrochlorothiazide 1 tab PO DAILY 07/14/24 07/14/24 History [Valsartan-Hctz 160-12.5 mg Tab] Allergies Allergy/AdvReac Type Severity Reaction Status Date / Time No Known Allergies Allergy Verified 07/14/24 15:35 Physical Exam Vitals: Vital Signs Temp Pulse Pulse Resp BP BP Pulse Ox 07/14/24 16:45 97.5 F L 98 17 125/76 98 07/14/24 16:37 99 F 94 18 127/85 97 07/14/24 14:24 98 F 94 18 120/79 99 Intake and Output 07/14/24 07/14/24 07/14/24 06:59 14:59 22:59 Intake Total 200 Balance 200 Intake: Oral 200 Other: Weight 141.067 kg 141.067 kg General appearance: alert, in no apparent distress Head exam: Present: atraumatic Eye exam: Present: normal appearance Neck exam: Present: normal inspection. Absent: tenderness Respiratory exam: Present: normal lung sounds bilaterally Cardiovascular Exam: Present: regular rate, normal rhythm GI/Abdominal exam: Present: soft. Absent: tenderness Extremities exam: Present: other (Right lower leg splinted. Toes with good movement and sensation and cap refill) Neurological exam: Present: alert. Absent: motor sensory deficit Psychiatric exam: Present: normal affect, normal mood Skin exam: Present: normal color Results CBC & Chem 7: 07/15/24 03:58 07/15/24 03:58 Labs: Abnormal Lab Results - Last 24 Hours (Table) 07/14/24 07/14/24 Range/Units 15:34 15:34 Hgb 12.8 L (13.0-17.5) gm/dL Hct 38.9 L (39.0-53.0) % Sodium 135 L (137-145) mmol/L BUN 30 H (9-20) mg/dL Assessment and Plan Assessment: 1. Right ankle fracture -Pain control with IV Dilaudid; EKG obtained in ED and is reviewed -Orthopedic surgery is consulted; await evaluation -Patient is medically cleared to proceed with surgical intervention 2. Mild NONA; patient placed on slow IV fluid hydration; monitor renal function electrolytes; avoid nephrotoxins and hypotension 3. Asthma/COPD; not in exacerbation; continue with home dose of Symbicort along with Ventolin for rescue inhaler; Singulair 10 mg daily 4. Seasonal allergies; Flonase nasal spray along with Zyrtec 10 mg daily 5. Hypertension; valsartan/hydrochlorothiazide 160-12.5 mg daily 6. Diabetes mellitus; patient uses Rybelsus 7 mg daily; we will monitor Accu- Cheks before meals and at bedtime with insulin sliding scale 7. Gastroesophageal reflux disease; Protonix 40 mg twice daily 8. BPH; Flomax 0.4 mg daily
--- NOTE | 2024-07-15 15:22 | P.PN ---
Subjective Progress Note Date: 07/15/24 63-year-old male present, history of hypertension, GERD, presented to the emergency department as a transfer from [facility]. Patient was rafting basketball when he inverted his right ankle. Patient went there and they did notice fracture on x-ray. Patient was splinted and transferred here for orthopedic care. They did attempt to ambulate the patient with crutches however he is unable to secondary to chronic ankle problems on the other side Blood work completed in ED reveals WBC of 7.2, hemoglobin of 12.8 and platelet count of 383, sodium 135, potassium 3.9, BUNs/creatinine of 30/0.97, EKG interpreted by myself shows sinus rhythm with a rate of 98. Normal intervals. Normal axis. Normal QRS. No acute ST change. -Patient is evaluated by orthopedic surgery with plans to proceed with ORIF tomorrow morning -Patient to be placed on DVT prophylaxis postoperatively Objective - Vital Signs Vital signs: Vital Signs Temp 97.4 F L 07/15/24 07:15 Pulse 107 H 07/15/24 07:15 Resp 17 07/15/24 07:15 BP 159/92 07/15/24 07:15 Pulse Ox 95 07/15/24 07:15 FiO2 Intake & Output 07/14/24 07/15/24 07/15/24 18:59 06:59 18:59 Intake Total 500 1620 200 Output Total 850 Balance 500 770 200 Weight 141.067 kg Intake: Oral 500 1620 200 Output: Urine 850 Other: Voiding Method Urinal Urinal # Voids 5 - Exam General appearance: alert, in no apparent distress Head exam: Present: atraumatic Eye exam: Present: normal appearance Neck exam: Present: normal inspection. Absent: tenderness Respiratory exam: Present: normal lung sounds bilaterally Cardiovascular Exam: Present: regular rate, normal rhythm GI/Abdominal exam: Present: soft. Absent: tenderness Extremities exam: Present: other (Right lower leg splinted. Toes with good movement and sensation and cap refill) Neurological exam: Present: alert. Absent: motor sensory deficit Psychiatric exam: Present: normal affect, normal mood Skin exam: Present: normal color - Labs CBC & Chem 7: 07/15/24 03:58 07/15/24 03:58 Labs: Abnormal Lab Results - Last 24 Hours (Table) 07/14/24 07/14/24 07/15/24 Range/Units 15:34 15:34 03:58 RBC 4.31 L (4.40-5.60) X 10*6/uL Hgb 12.8 L 12.5 L (13.0-17.5) gm/dL Hct 38.9 L 38.2 L (39.0-53.0) % Monocytes # 1.04 H (0.20-1.00) X 10*3/uL Sodium 135 L (137-145) mmol/L BUN 30 H (9-20) mg/dL BUN/Creatinine Ratio (12.00-20.00) Ratio Glucose (70-110) mg/dL 07/15/24 Range/Units 03:58 RBC (4.40-5.60) X 10*6/uL Hgb (13.0-17.5) gm/dL Hct (39.0-53.0) % Monocytes # (0.20-1.00) X 10*3/uL Sodium (137-145) mmol/L BUN (9-20) mg/dL BUN/Creatinine Ratio 22.67 H (12.00-20.00) Ratio Glucose 120 H (70-110) mg/dL Assessment and Plan Assessment: 1. Right ankle fracture -Pain control with IV Dilaudid; EKG obtained in ED and is reviewed -Orthopedic surgery is consulted; await evaluation -Patient is medically cleared to proceed with surgical intervention 2. Mild NONA; patient placed on slow IV fluid hydration; monitor renal function electrolytes; avoid nephrotoxins and hypotension 3. Asthma/COPD; not in exacerbation; continue with home dose of Symbicort along with Ventolin for rescue inhaler; Singulair 10 mg daily 4. Seasonal allergies; Flonase nasal spray along with Zyrtec 10 mg daily 5. Hypertension; valsartan/hydrochlorothiazide 160-12.5 mg daily 6. Diabetes mellitus; patient uses Rybelsus 7 mg daily; we will monitor Accu- Cheks before meals and at bedtime with insulin sliding scale 7. Gastroesophageal reflux disease; Protonix 40 mg twice daily 8. BPH; Flomax 0.4 mg daily
[2024-07-15] MEDS ORDERED: ZINC OXIDE PASTE (Z-GUARD) 1 APPLIC TOPICAL PRN (20:42)
--- NOTE | 2024-07-16 06:35 | P.PN ---
Progress Note - Text Progress Note Date: 07/16/24 Patient seen and examined this morning. Patient is resting comfortably in bed. Patient is n.p.o. for surgical intervention later this afternoon. He states that he is looking forward to having the procedure and working towards his recovery. No acute concerns.
[2024-07-16] MEDS: IV FLUID CONTINUATION 1,000 ML IV ONE (14:09)
[2024-07-16] MEDS: LACTATED RINGERS 1,000 ML IV SCH (14:26)
[2024-07-16] MEDS: DEXAMETHASONE SOD PHOSPHATE 4 MG/ML 1 ML VIAL IVP STA (14:45)
[2024-07-16] MEDS: ONDANSETRON 4 MG/2 ML VIAL IVP PRN (14:45)
[2024-07-16] MEDS ORDERED: ceFAZolin 2 GM in SODIUM CHLORIDE 0.9% 100 ML IVPB ONE (14:45)
[2024-07-16] MEDS: MIDAZOLAM 2 MG/2 ML VIAL IV ONE (14:46)
--- NOTE | 2024-07-16 15:10 | P.ANPRN ---
Procedure Note - Anesthesia - Nerve Block Performed Right Popliteal Single Time Out Performed: Yes Date of Procedure: 07/16/24 Procedure Start Time: 14:45 Procedure Stop Time: 14:50 Location of Patient: PreOp Indication: Acute Post-Operative Pain, Analgesia, Requested by Surgeon Sedation Type: Sedate with meaningful contact maintained Preparation: Sterile Prep Position: Left Lateral Catheter: None Needle Types: Pajunk Needle Gauge: 21 Ultrasound used to visualize needle placement: Yes Ultrasound used to observe medication spread: Yes Injectate: 0.5% Ropivacaine (see comment for volume) ([id number]) Blood Aspirated: No Pain Paresthesia on Injection Noted: No Resistance on Injection: Normal Image Stored and Saved: Yes Events: Uneventful and Well Tolerated
--- NOTE | 2024-07-16 15:11 | P.ANPRN ---
Procedure Note - Anesthesia - Nerve Block Performed Right Adductor Canal Single Time Out Performed: Yes Date of Procedure: 07/16/24 Procedure Start Time: 14:50 Procedure Stop Time: 14:55 Location of Patient: PreOp Indication: Acute Post-Operative Pain, Analgesia, Requested by Surgeon Sedation Type: Sedate with meaningful contact maintained Preparation: Sterile Prep Position: Supine Catheter: None Needle Types: Pajunk Needle Gauge: 21 Ultrasound used to visualize needle placement: Yes Ultrasound used to observe medication spread: Yes Injectate: 0.5% Ropivacaine (see comment for volume) ([id number]) Blood Aspirated: No Pain Paresthesia on Injection Noted: No Resistance on Injection: Normal Image Stored and Saved: Yes Events: Uneventful and Well Tolerated
[2024-07-16] MEDS ORDERED: fentaNYL (PF) 50 MCG/ML 2 ML AMP ONE (15:18)
[2024-07-16] MEDS ORDERED: PHENYLEPHRINE 10 MG/ML VIAL ONE (15:18)
[2024-07-16] MEDS ORDERED: MIDAZOLAM 2 MG/2 ML VIAL ONE (15:18)
[2024-07-16] MEDS ORDERED: SUCCINYLCHOLINE CHLORIDE 200 MG/10 ML VIAL IV ONE (15:18)
[2024-07-16] MEDS ORDERED: DEXAMETHASONE SOD PHOSPHATE 4 MG/ML 1 ML VIAL ONE (15:18)
[2024-07-16] MEDS ORDERED: PROPOFOL 10 MG/ML 20 ML VIAL IV ONE (15:18)
[2024-07-16] MEDS: SODIUM CHLORIDE 0.9% 100 ML with ceFAZolin 2,000 MG IV ONE (15:18)
[2024-07-16] MEDS ORDERED: ROCURONIUM 10 MG/ML (5 ML VIAL) IV ONE (15:18)
[2024-07-16] MEDS ORDERED: GLYCOPYRROLATE 0.2 MG/ML 2 ML VIAL ONE (15:18)
[2024-07-16] MEDS ORDERED: LIDOCAINE 1% INJ 10MG/ML (20 ML MDV) ONE (15:18)
[2024-07-16] MEDS ORDERED: ROPIVACAINE 5 MG/ML 30 ML VIAL ONE (15:18)
[2024-07-16] MEDS ORDERED: NEOSTIGMINE 1 MG/ML 10 ML VIAL ONE (15:18)
[2024-07-16] MEDS ORDERED: NALOXONE 0.4 MG/ML 1 ML VIAL IV PRN (15:50)
--- NOTE | 2024-07-16 16:29 | P.OP ---
Date of Procedure: 07/16/24 Preoperative Diagnosis: 1. RIGHT BIMALLEOLAR ANKEL FRACTURE 2. S/P FALL FROM STANDING MULTIPLE EVENTS 3. LEFT ANKLE SPRAIN 4. COMPLEX MEDICAL PATIENT Postoperative Diagnosis: 1. RIGHT BIMALLEOLAR ANKEL FRACTURE 2. S/P FALL FROM STANDING MULTIPLE EVENTS 3. LEFT ANKLE SPRAIN 4. COMPLEX MEDICAL PATIENT Procedure(s) Performed: 1. 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 It was my pleasure to have seen and examined João Larry. In our visit today we have had a chance to go over subjective complaints, physical examination findings and treatments including the natural course history without intervention and various interventional options. Their imaging demonstrates the following findings: On a physical exam, João Larry demonstrates pain with motion of RLE, which is NV intact at this time. I have explained to the patient that this fracture needs stabilization. Based on the patient's imaging, physical exam, and the rapid progression and disabling nature of her symptoms, at this time I recommend surgery in the form of a: OPEN REDUCTION AND INTERNAL FIXATION OF RIGHT ANKLE I discussed the risk and benefits of this procedure at length with [patient]. Questions were invited and answered, and the patient wishes to proceed as outlined below. Currently, I am recommendin. OPEN REDUCTION AND INTERNAL FIXATION OF RIGHT ANKLE Description of Procedure: The patient was seen and examined in the preoperative area. All preoperative protocols were followed. Informed consent was obtained, risks and benefits of the procedure were discussed at length. Risks including bleeding infection damage to the surrounding tissue and risk of reoperation were discussed with the patient. Risk of anesthesia up to and including was discussed with the patient. These are outlined in the risk reviewed. They were willing to accept these risks and all of the risks of surgery. The patient was given a weight- based dose of antibiotics in the form of 2 g Ancef. The patient was seen and evaluated by the anesthesia team who deemed them fit for surgery. The site was marked, the patient was willing to proceed with the procedure. The patient was transferred to the operative suite by the Department of anesthesia. They were then drifted off to sleep by the department of anesthesia andGETA anesthesia was used. Once adequate anesthesia had been obtained the patient was carefully transferred to the operative bed. All bony prominences were padded accordingly. SCDs were placed on the nonoperative lower extremities. Arms were well padded. The patient's right leg was placed on a bone foam ramp and a tourniquet was placed on the patient's right upper thigh. 1015 placed around the leg. The contralateral leg was secured to the table with tape. A bump was placed under the patient's right hip. Preoperative briefing was done with the operative team and everyone was ready for the procedure to start. The patient's right leg was then prepped and draped in the normal sterile fashion. Timeout was then performed and all parties in agreement with the procedure to be performed. Leg was exsanguinated and the tourniquet inflated to 280 mmHg. Incision was made on the lateral aspect of the right ankle over the lateral malleolus and blunt dissection taken down to the fracture and fibula. Wood handle elevator was used to remove periosteum and open the space for fracture visualization and reduction. There was alot of scarring and callous formation around the fracture site which was removed and the fracture was irrigated. The fracture was reduced using traction and supination of the foot and ankle. A plate was selected and pinned to the fibula. The fracture due to the comminution and was unamendable to lag screw technique so bridge/compression plating was done. Once the plate was secured, C clamp was used to maintain the reduction to the plate and maintain length and rotation of the fracture. Distal screws were then drilled, measured and placed in a locking fashion. After this, proximal shaft screws were drilled in a non locking fashion as described. The pins were removed and the fracture held. The plate was confirmed to be in good position on AP and lateral image. Attention was then turned to the medial malleolus. There was no large enough fragment for screw fixation. A cotton test and external rotation test were then performed. There was no syndesmotic widening of the fracture. Final imaging showed good fracture and TT joint reduction with good alignment. The posterior malleolus was a very small piece and was well reduced. The wounds were then copiously irrigated with NSS. Tourniquet was deflated at 17 min. The wounds were then closed with 0 Vicryl in the deep facial tissue, 2-0 Vicryl in the superficial subq tissue and 2-0 nylon in a running trauma stitch fashion in the skin. Wound edges approximated well. The wounds were then cleaned and dressed sterilly with adaptic, 4x4, ABD and webril this was overwrapped with an negar wrap. The patient was then transferred back to their hospital bed. They were awakened by the department of anesthesia having tolerated the procedure very well with no complications. The patient was then transported to the postoperative care unit in stable condition.
--- NOTE | 2024-07-16 16:34 | XR ---
EXAMINATION TYPE: XR ankle limited RT, FL guidance operating room DATE OF EXAM: 07/16/2024 4:23 PM COMPARISON: Pre Operative Images if available both CT/MRI or plain film CLINICAL INDICATION: Male, 63 years old with history of HARDWARE PLACEMENT; TECHNIQUE: XR ankle limited RT, FL guidance operating room, multiple fluoroscopic images provided for procedure. Total fluoroscopy time: 19 seconds Total submitted images to PACS: 5 DAP: 0.2006 mGym2 Gycm2 uGym2 cGycm2 or equivalent. FINDINGS: Fluoroscopic images during internal fixation/arthroplasty demonstrate hardware in appropriate positio n. Hardware appears intact. No immediate complication identified. IMPRESSION: 1. No evidence for intraoperative complication. 2. Please see the operative/procedural note for further details. [facility], , 07/16/2024 4:31 PM
[2024-07-16] MEDS: ceFAZolin 3 GM in SODIUM CHLORIDE 0.9% 100 ML IVPB ONE (17:48)
[2024-07-16] MEDS: SENNOSIDES-DOCUSATE SODIUM 1 EACH TAB PO SCH (20:54)
--- NOTE | 2024-07-16 21:59 | PN ---
PROGRESS NOTE DATE OF SERVICE: 07/16/2024 SUBJECTIVE: This is a 63-year-old gentleman, who was admitted with right ankle fracture, is scheduled for surgery. The patient had NONA also. OBJECTIVE: VITAL SIGNS: Pulse is 102, blood pressure 137/76, respirations 18. CHEST: Clear to auscultation. CARDIOVASCULAR: S1, S2. ABDOMEN: Soft. NERVOUS SYSTEM: Nonfocal. LEGS: Status post fracture. LABORATORY DATA: Noted. ASSESSMENT: 1. Status post right ankle fracture. 2. Mild acute kidney injury, improved. 3. Asthma, chronic obstructive pulmonary disease history. 4. Hypertension. 5. Diabetes mellitus, type 2. RECOMMENDATIONS: Recommend to continue current management and continue symptomatic treatment. Await Surgery. Repeat labs. Pain management. PT/OT evaluation. Guarded prognosis. Further recommendations to follow. MMODL / IJN: [id number] /
[2024-07-17] MEDS ORDERED: HYDROmorphone 0.5 MG/0.5 ML SYRINGE IVP PRN (07:00)
[2024-07-17] MEDS ORDERED: ONDANSETRON 4 MG/2 ML VIAL IVP PRN (07:00)
--- NOTE | 2024-07-17 07:04 | P.PN ---
Subjective Progress Note Date: 07/17/24 Principal diagnosis: Fall from standing Right ankle fracture Patient seen and examined this morning. Patient is resting comfortably in bed. He currently denies any pain to the right ankle. Surgical dressing to the right ankle is clean dry and intact. Informed patient that physical therapy will begin to work with him today. Patient states that he is looking forward to wor barbie with therapy and progressing with his recovery. Patient denies any numbness or tingling to the right lower extremity. Discharge instructions have been discussed. Prescription for a cam walker boot has been placed in chart. Patient is to be nonweightbearing of the right lower extremity. He does report that he has a walker at home. No acute concerns. Objective - Vital Signs Vital signs: Vital Signs Temp 97.8 F 07/17/24 00:30 Pulse 102 H 07/17/24 00:30 Resp 16 07/17/24 00:30 BP 111/74 07/17/24 00:30 Pulse Ox 91 L 07/17/24 00:30 FiO2 Intake & Output 07/16/24 07/16/24 07/17/24 06:59 18:59 06:59 Intake Total 1000 1620 Output Total 600 2020 1100 Balance -600 -1020 520 Weight 141.067 kg Intake: IV 1000 Oral 1620 Output: Urine 600 2000 1100 Estimated Blood Loss 20 Other: Voiding Method Urinal Urinal # Voids 4 - Exam Inspection: Surgical dressing to the right lower extremity, dressing is clean dry and intact. Sensation: Sensation is equal, symmetric, bilaterally intact throughout the u pper and lower extremities Palpation: Tenderness to palpation around the incision sites of the right ankle. Range of motion: Patient does have full range of motion bilateral upper and left lower extremities on exam, limited range of motion of the right ankle due to surgical procedure and pain. Motor: Right: shoulder abduction 5/5, elbow flexors 5/5, wrist dorsiflexors 5/5. finger abductor 5/5, overlock collar setter 5/5, hip flexor 5/5, knee flexor 5/5, ankle dorsiflexor 5/5, ankle plantarflexion 5/5 and extensor hallucis 5/5. Left: shoulder abduction 5/5, elbow flexors 5/5, wrist dorsiflexors 5/5. finger abductor 5/5, overlock collar setter 5/5, hip flexor 5/5, knee flexor 5/5, ankle dorsiflexor 4-/5, ankle plantarflexion 4-/5 and extensor hallucis 5/5. Special tests: Negative Homans bilaterally. Negative Jared bilaterally. Negative clonus bilaterally. Neurovascular: Radial pulse intact, 2+ bilaterally. Cap refill under 3 seconds in digits upper extremities. - Labs CBC & Chem 7: 07/15/24 03:58 07/15/24 03:58 Assessment and Plan Assessment: Postop day 1: Right ankle ORIF Plan: -Appreciate data processing systems consultant and team management. -Activity: Ambulate QID, OOB all meals, up and about, limit lifting bending twisting to less than 5 lbs. Patient is to be nonweightbearing of the right lower extremity use walker for stability. -Daily PT/OT, increase ambulation strength and balance. -Prescription for cam walker boot has been placed in chart -Pain control: Adequate at this time -Meds: reviewed -GI ppx: senna, Miralax -DVT PPX: Aspirin 81mg daily -Hygiene: Maintain incision clean and dry. May change dressing as needed, please document in notes if performed. -Encourage IS 10x/hr -Dispo: Anticipate discharge home with homecare later today. *I reviewed and discussed this case with my attending Dr. Young, whom has reviewed this chart and films and is in agreement with assessment and plan of care as outlined above. I have personally seen and examined the patient, performed the documentation and the assessment and plan as written. Number of minutes spent on the visit: 20m.
--- NOTE | 2024-07-17 08:18 | P.DS ---
Providers Date of admission: 07/14/24 15:03 Expected date of discharge: 07/17/24 Attending physician: Dakotah Young DO Consults: 07/14/24 15:03 Consult Physician Routine Consulting Provider: Jo Burger Reason/Comments: medical care Do you want consulting provider notified?: Yes Primary care physician: Peter [facility] Hospital Course: Hospital Course: The patient was evaluated preoperatively and found to have the diagnosis of right ankle fracture. They underwent appropriate preoperative care and were willing to undergo the intended procedure. They underwent a successful right ankle ORIF, were recovered appropriately and sent to the floor. While on the floor they worked with physical therapy, occupational therapy and nursing to enhance their recovery experience. Their pain was well controlled through their stay and they were started on appropriate medications, DVT ppx modalities, activity and dietary needs. Daily labs were monitored closely, and transfusions were only used when necessary. Medicine as well as other consulting services have made their input and have helped with our team approach and multidisciplinary care. PT milestones have been met and passed and they have made the recommendation of home for this patient and treating providers agree with this care path. The patient will be discharged home with appropriate medications, instructions and follow-up information and in stable condition. Patient Condition at Discharge: Good Plan - Discharge Summary Discharge Rx Participant: No New Discharge Prescriptions: New Aspirin 325 mg PO BID #60 tab HYDROcodone/APAP 5-325MG [[place] 5-325] 1 tab PO Q6HR PRN #28 tab PRN Reason: Pain Sennosides/Docusate Sodium [Senna Plus 8.6-50 mg Tablet] 2 each PO DAILY PRN #30 tab PRN Reason: Constipation No Action Gabapentin 300 mg PO DAILY Pantoprazole [Protonix] 40 mg PO BID Aspirin [Adult Low Dose Aspirin EC] 81 mg PO DAILY Valsartan/Hydrochlorothiazide [Valsartan-Hctz 160-12.5 mg Tab] 1 tab PO DAILY Tamsulosin [Flomax] 0.4 mg PO DAILY Fluticasone Nasal [place] [Flonase Nasal [place]] 1 - 2 spray EA NOSTRIL DAILY PRN PRN Reason: Allergy Symptoms Montelukast [Singulair] 10 mg PO DAILY Furosemide [Lasix] 20 mg PO DAILY Budesonide/Formoterol Fumarate [Symbicort 160-4.5 Mcg Inhaler] 2 puff INHALATION RT-BID Cetirizine HCl [Zyrtec] 10 mg PO DAILY Metaxalone [Skelaxin] 800 mg PO DAILY Albuterol Inhaler [Ventolin Hfa Inhaler] 2 puff INHALATION RT-Q4H PRN PRN Reason: Shortness Of Breath Semaglutide [Rybelsus] 7 mg PO DAILY Potassium Chloride ER [K-Dur 10] 10 meq PO DAILY Celecoxib [CeleBREX] 100 mg PO BID Mv-Min/Folic/K1/Lycopen/Lutein [Centrum Silver Men Tablet] 1 tab PO DAILY Discharge Medication List Aspirin [Adult Low Dose Aspirin EC] 81 mg PO DAILY 05/23/20 [History] Gabapentin 300 mg PO DAILY 05/23/20 [History] Pantoprazole [Protonix] 40 mg PO BID 05/23/20 [History] Albuterol Inhaler [Ventolin Hfa Inhaler] 2 puff INHALATION RT-Q4H PRN 07/14/24 [History] Budesonide/Formoterol Fumarate [Symbicort 160-4.5 Mcg Inhaler] 2 puff INHALATION RT-BID 07/14/24 [History] Celecoxib [CeleBREX] 100 mg PO BID 07/14/24 [History] Cetirizine HCl [Zyrtec] 10 mg PO DAILY 07/14/24 [History] Fluticasone Nasal [place] [Flonase Nasal [place]] 1 - 2 spray EA NOSTRIL DAILY PRN 07/14/24 [History] Furosemide [Lasix] 20 mg PO DAILY 07/14/24 [History] Metaxalone [Skelaxin] 800 mg PO DAILY 07/14/24 [History] Montelukast [Singulair] 10 mg PO DAILY 07/14/24 [History] Mv-Min/Folic/K1/Lycopen/Lutein [Centrum Silver Men Tablet] 1 tab PO DAILY 07/14/24 [History] Potassium Chloride ER [K-Dur 10] 10 meq PO DAILY 07/14/24 [History] Semaglutide [Rybelsus] 7 mg PO DAILY 07/14/24 [History] Tamsulosin [Flomax] 0.4 mg PO DAILY 07/14/24 [History] Valsartan/Hydrochlorothiazide [Valsartan-Hctz 160-12.5 mg Tab] 1 tab PO DAILY 07/14/24 [History] Aspirin 325 mg PO BID #60 tab 07/17/24 [Rx] HYDROcodone/APAP 5-325MG [[place] 5-325] 1 tab PO Q6HR PRN #28 tab 07/17/24 [Rx] Sennosides/Docusate Sodium [Senna Plus 8.6-50 mg Tablet] 2 each PO DAILY PRN #30 tab 07/17/24 [Rx] Follow up Appointment(s)/Referral(s): Peter Lua DO [Primary Care Provider] - 1-2 days Dakotah Young DO [Doctor of Osteopathic Medicine] - 2 Weeks Activity/Diet/Wound Care/Special Instructions: Orthopedic Discharge Instructions: * Wound care and infection precautions; Keep incision clean and dry, allow soapy water to run over incision, Do not scrub over incision. No lotions, creams, moisturizers. No soaking, pools, hot tubs. May remove dressing when there is no drainage. * Non weight bearing of right lower extremity with walker / crutches until follow-up. * Ice when necessary. Do not exceed 20 minutes per hour with ice pack. No use of Heat Therapy near the surgical area. * Pain meds and anticoagulants per prescription. * Pain medication has potential to cause constipation. Increase oral fluid & fiber intake. Contact primary care provider if you have not had a bowel movement within 48 hours after d/c. * Follow up in office at [address] Young or Lydia Vang NP. * Follow up with your primary care doctor 7-10 days after discharge. * Contact [facility] with any questions, , option #3. Discharge Disposition: HOME SELF-CARE
[2024-07-17] MEDS: ENOXAPARIN 40 MG/0.4 ML SYRINGE SQ SCH (09:16)
[2024-07-17 09:38] LABS: Basophils # (A) 0.01 X 10*3/uL (0.00-0.10); Basophils % (A) 0.1 %; Eosinophils # (A) 0 X 10*3/uL (0.04-0.35); Eosinophils % (A) 0 %; HGB 13.2 g/dL (13.0-17.0); Lymphocytes # (A) 1.08 X 10*3/uL (0.90-5.00); Lymphocytes % (A) 11.2 %; MCH 28.9 pg (27.0-32.0); MCHC 32.2 g/dL (32.0-37.0); MCV 89.9 FL (80.0-97.0); Mean Platelet Volume 10.6 FL (9.5-12.2); Monocytes # (A) 0.55 X 10*3/uL (0.20-1.00); Monocytes % (A) 5.7 %; NRBC Per 100 WBC 0 X 10*3/uL (0.00-0.01); Neutrophils # (A) 7.98 X 10*3/uL (1.80-7.70); Neutrophils % (A) 82.5 %; Platelet Count 434 X 10*3/uL (140-440); RBC 4.56 X 10*6/uL (4.40-5.60); RDW 12.7 % (11.5-14.5); WBC 9.67 X 10*3/uL (4.50-10.00)
[2024-07-17 11:20] LABS: Blood Urea Nitrogen 20.6 mg/dL (9.0-27.0); Calcium 9.2 mg/dL (8.7-10.3); Carbon Dioxide 24.1 mmol/L (21.6-31.8); Chloride 101 mmol/L (96-109); Glucose 163 mg/dL (70-110); Potassium 3.7 mmol/L (3.5-5.5); Sodium 138 mmol/L (135-145)
[2024-07-17 11:25] LABS: INR 0.99 sec (0.93-1.11); Prothrombin Time 11.1 sec (9.9-11.9)
[2024-07-17] MEDS: HYDROmorphone 0.5 MG/0.5 ML SYRINGE IVP PRN (17:21)
--- NOTE | 2024-07-17 19:12 | PN ---
PROGRESS NOTE DATE OF SERVICE: 07/17/2024 SUBJECTIVE: This is a 63-year-old gentleman, who was admitted after right ankle fracture, had surgery. The patient is being worked up for possible rehab. OBJECTIVE: VITAL SIGNS: Pulse is 88, blood pressure 118/80, respirations 16. CHEST: Clear to auscultation. CARDIOVASCULAR: S1, S2. ABDOMEN: Soft. RIGHT ANKLE: Status post surgery. LABORATORY DATA: Reviewed. ASSESSMENT: 1. Right ankle fracture, status post ORIF of the ankle bimalleolar fracture. 2. Mild acute kidney injury, improved. 3. Asthma, chronic obstructive pulmonary disease history. 4. Hypertension. 5. Diabetes mellitus, type 2. RECOMMENDATIONS: Recommend to continue current management and continue symptomatic treatment. Monitor blood sugars and blood pressure. Otherwise, rest of the recommendations per Orthopedic Surgery including DVT prophylaxis. Further recommendations to follow. MMODL / JEAN CLAUDEN: [id number] /
[2024-07-18 07:53] VITALS: BP 111/71; RESP 18; TEMP 98
[2024-07-18 09:21] LABS: INR 1.01 sec (0.93-1.11); Prothrombin Time 11.3 sec (9.9-11.9)
[2024-07-18] MEDS: ALBUTEROL NEBULIZED 2.5 MG/3 ML INHALATION PRN (10:26)
[2024-07-18 10:41] VITALS: PULSE 105
[2024-07-18] MEDS: HYDROcodone/APAP 7.5-325MG 1 EACH TAB PO PRN (10:50)
--- NOTE | 2024-07-18 11:00 | P.PN ---
Subjective Progress Note Date: 07/18/24 Principal diagnosis: Status post ORIF right ankle bimalleolar fracture Patient was evaluated today at bedside, apparently discharge was attempted yesterday. They were recommending patient be discharged to rehab, case management is working on prior authorization for this. A prescription was placed yesterday for a cam walker boot, we are also still waiting on this. Patient is resting comfortably, he is having no apparent distress. Mild discomfort in the right lower extremity. He continues to ice and elevate. Denies headaches, lightheadedness, chest pain or shortness of breath Objective - Vital Signs Vital signs: Vital Signs Temp 98 F 07/18/24 07:27 Pulse 105 H 07/18/24 10:39 Resp 18 07/18/24 07:27 BP 111/71 07/18/24 07:27 Pulse Ox 94 L 07/18/24 07:27 FiO2 Intake & Output 07/17/24 07/18/24 07/18/24 18:59 06:59 18:59 Intake Total 120 Output Total 700 Balance -580 Intake: Oral 120 Output: Urine 700 Other: Voiding Method Urinal # Voids 1 - Exam Right lower extremity: Postop splint is in good position condition. Sensation to light touch both proximal distal to the splint are intact. Skin is warm to touch both proximal distal to the splint. He is able to wiggle all the toes with no difficulty. - Labs CBC & Chem 7: 07/17/24 03:07 07/17/24 03:07 Labs: Abnormal Lab Results - Last 24 Hours (Table) 07/17/24 Range/Units 03:07 Anion Gap 12.90 H (4.00-12.00) mmol/L BUN/Creatinine Ratio 20.60 H (12.00-20.00) Ratio Glucose 163 H (70-110) mg/dL Assessment and Plan Assessment: Postoperative day #2 status post ORIF right ankle bimalleolar fracture Plan: Pain control, continue with current medications. Pain medication prescription is in patient's chart DVT prophylaxis, continue aspirin 325 mg twice a day, we will also utilize this at discharge Awaiting cam walker boot delivery, will fit patient for this once it arrives Nonweightbearing right lower extremity Ice and elevate the right lower extremity often Medical recommendations appreciated Discharge planning: Will continue to follow during hospital stay Time with Patient: Less than 30
--- NOTE | 2024-07-22 11:56 | P.PN ---
Subjective Progress Note Date: 07/18/24 63-year-old male present, history of hypertension, GERD, presented to the emergency department as a transfer from [facility]. Patient was rafting basketball when he inverted his right ankle. Patient went there and they did notice fracture on x-ray. Patient was splinted and transferred here for orthopedic care. They did attempt to ambulate the patient with crutches however he is unable to secondary to chronic ankle problems on the other side Blood work completed in ED reveals WBC of 7.2, hemoglobin of 12.8 and platelet count of 383, sodium 135, potassium 3.9, BUNs/creatinine of 30/0.97, EKG interpreted by myself shows sinus rhythm with a rate of 98. Normal intervals. Normal axis. Normal QRS. No acute ST change. -Patient is evaluated by orthopedic surgery with plans to proceed with ORIF tomorrow morning -Patient to be placed on DVT prophylaxis postoperatively 07/18/2024 Patient is seen in follow-up status post ORIF of the right ankle nonweightbearing and continues to wait for insurance authorization for patient to go to rehab. Patient denies chest pain or shortness of breath is tolerating diet with no reported nausea or vomiting. Continue with bowel regimen and DVT prophylaxis per orthopedics review of systems: Constitutional: No reports of fatigue, fever, or chills Cardiovascular: No reports of chest pain or palpitations Respiratory: No reports of shortness of breath or cough GI: No reports of nausea, vomiting, or diarrhea : No reports of dysuria or retention Neurovascular:reports of weakness and some continued right ankle pain All medications have been reviewed Physical exam: Gen: This is a 63-year-old male who is awake, alert and oriented x 3, well- developed, elderly appearing, obese HEENT: Head is atraumatic, normocephalic. Pupils equal, round. Sclerae is anicteric. NECK: Supple. No JVD. No lymphadenopathy. No thyromegaly. LUNGS: Diminished breath sounds bilaterally otherwise clear to auscultation. No wheezes or rhonchi. No intercostal retractions. HEART: Regular rate and rhythm. No murmur. ABDOMEN: Soft. Obese. Bowel sounds are present. No masses. No tenderness. EXTREMITIES: No pedal edema. No calf tenderness. Right surgical cast intact, cap refill of the right toes less than 3 seconds NEUROLOGICAL: Patient is awake, alert and oriented x3. Cranial nerves 2 through 12 are grossly intact. Diffusely weak Assessment: Right ankle fracture, status post ORIF Mild NONA; improved with IV hydration Asthma/COPD; not in exacerbation Seasonal allergies Hypertension Diabetes mellitus, type II Morbid obesity with a BMI of 41.0 Gastroesophageal reflux disease GI prophylaxis History of BPH DVT prophylaxis Full code Plan: Patient admitted under orthopedic status post ORIF of the right ankle fracture remains nonweightbearing of that right lower extremity awaiting insurance authorization for rehab Social work/case management following and has submitted for Auth which is pending at this time Encourage incentive spirometer use at least 10 times every hour while awake Home meds reviewed and resumed as appropriate Recommend outpatient follow-up with primary care provider Patient is medically stable once cleared by orthopedics Thank you kindly for this consultation. We will continue to follow with orthopedics during hospitalization The impression and plan of care has been dictated by Meka Phipps, Nurse Practitioner as directed. Dr. Niraj MD I have performed a history and examination and MDM of this patient, discussed the same with the dictator, and agree with the dictator's assessment and plan a s written ,documented as a scribe. Based on total visit time, I have performed more than 50% of the visit. Objective - Vital Signs Vital signs: Vital Signs Temp 98 F 07/18/24 07:27 Pulse 105 H 07/18/24 10:39 Resp 18 07/18/24 07:27 BP 111/71 07/18/24 07:27 Pulse Ox 94 L 07/18/24 07:27 FiO2 - Labs CBC & Chem 7: 07/17/24 03:07 07/17/24 03:07
== END 2024-07-18 16:45 ==
LOC: EC 14:21 → 4SSUR 15:03 → INTOOBSV 15:03 → 4SSUR 16:07 → UNDODISIN 07-18 16:45
PROVIDERS: ADMIT Orthopaedic Surgery; ATTEND Orthopaedic Surgery
DX: S82.841A Displaced bimalleolar fracture of right lower leg, initial encounter for closed fracture (principal); W18.30XA Fall on same level, unspecified, initial encounter; G89.18 Other acute postprocedural pain; N17.9 Acute kidney failure, unspecified; J44.89 Other specified chronic obstructive pulmonary disease; J30.2 Other seasonal allergic rhinitis; I10 Essential (primary) hypertension; E11.9 Type 2 diabetes mellitus without complications; K21.9 Gastro-esophageal reflux disease without esophagitis; N40.0 Benign prostatic hyperplasia without lower urinary tract symptoms; E66.01 Morbid (severe) obesity due to excess calories; Z68.41 Body mass index [BMI] 40.0-44.9, adult; Z79.82 Long term (current) use of aspirin; Z79.899 Other long term (current) drug therapy
CPT/HCPCS: 27814; 96376 ×2; 96365 ×2; 96366 ×2; 96372 ×2; 96375 ×2; 99284; 36415; 94640 ×8; 93005; 97161; 97530; 97166; 80053; 80048 ×2; 85025 ×3; 85610 ×2; 73600; 71045; 64447; 64445; G0378 ×5; C1713; J2250; J0330; J1100; J2710; J0690 ×3; J2405; J2003; J1650 ×2; J3010; J1171 ×4; J2795; J2704; J2371; J1596; 99285

== ENCOUNTER → 2024-09-18 | Outpatient (CLI) | payer OTHER ==
--- NOTE | 2024-09-18 14:50 | XR ---
EXAMINATION TYPE: XR ankle complete RT DATE OF EXAM: 09/18/2024 CLINICAL INDICATION: Male, 63 years old with history of L97.312 NON-PRS CHRONIC ULCER OF RIGHT ANKLE W FAT, pain TECHNIQUE: Frontal, lateral and oblique images of the right ankle are obtained. COMPARISON: None. FINDINGS: Overlying bandage or clothing material is present making evaluation suboptimal. Soft tissue ulceration laterally is present. There is lateral fixating plate through healing spiral fracture of the lateral malleolus. No acute displaced fracture. Ankle mortise symmetry is maintained. Moderate si ze inferior calcaneal spur. No suspicious bony destruction. IMPRESSION: As above. [facility], , 09/18/2024 2:47 PM
== END | disposition home or self-care (01) ==
LOC: RADXRMAIN 13:43
PROVIDERS: ATTEND Nurse Practitioner Family
DX: S82.61XD Displaced fracture of lateral malleolus of right fibula, subsequent encounter for closed fracture with routine healing (principal); L97.312 Non-pressure chronic ulcer of right ankle with fat layer exposed

== ENCOUNTER → 2024-12-06 | Outpatient (CLI) | payer MEDICARE, OTHER ==
[2024-12-06 10:44] VITALS: BP 111/81; PULSE 78; RESP 16; TEMP 98.1
--- NOTE | 2024-12-06 11:06 | P.SLEEP ---
History of Present Illness DATE: 12/06/2024 CONSULTATION/NEW PATIENT EVALUATION HISTORY OF PRESENT ILLNESS/SLEEP-WAKE EVALUATION: 64-year-old gentleman had b een evaluated in the sleep center for possible obstructive sleep apnea hypopnea syndrome. SLEEP SCHEDULE: Usually sleep schedule from 10:30 PM to 6:15 AM 7 days a week. FALLING ASLEEP: No problems with falling asleep. DURING SLEEP: Patient sleeps by himself, so no information about snoring. Patient wakes up from sleep twice with nocturia. Positive history of heartburn no history of hypnogogical hallucinations, sleep paralysis, or cataplexy. DURING THE DAY/WAKE STATE: []. Barker sleepiness scale is 0. Patient takes 1 nap around 1:30 PM. PAST MEDICAL HISTORY: Hypertension, BPH, acid reflux, allergies, psoriasis, psoriatic arthritis. PAST SURGICAL HISTORY: Bilateral knee surgery, bilateral shoulder surgery bilateral foot surgery, nasal surgery in 2023. MEDICATIONS: Valsartanhydrochlorothiazide, tamsulosin, pantoprazole, atorvastatin, gabapentin, montelukast, albuterol inhaler, iron supplement ferrous sulfate. SOCIAL HISTORY: Please see below. FAMILY HISTORY: Please see below. REVIEW OF SYSTEMS: Awakenings from sleep. No fevers. No double vision. No recent chest pain. No shortness of breath. No abdominal pain. No bleeding episodes. No blood in urine. No seizure episodes. PHYSICAL EXAMINATION: GENERAL: A pleasant patient without any distress. VITAL SIGNS: Please see below, weight 317 pounds, BMI 42.1. HEENT: PERRLA, EOMI. Evaluation of oropharynx showed tongue protrudes midline, low position of soft palate Mallampati 4. NECK: Supple. No JVD. Thyroid is not palpable. 19 inches in circumference. LUNGS: Clear to percussion and to auscultation. Good air exchange. No wheezing or rhonchi. HEART: S1, S2 regular. No murmurs, gallops or rubs. ABDOMEN: Soft and nontender. Bowel sounds are present. No organomegaly appreciated. EXTREMITIES: No clubbing or cyanosis. MEDICAL LAB DIRECTOR: Awake, alert, and oriented x3. Cranial nerves 2 to 7 intact. There is no fasciculation or atrophy noted. No focal deficits observed. ASSESSMENT: 1. Multiple awakenings from sleep, extremely low position of soft palate Mallampati 4, wide neck 19 inches in circumference. Obstructive sleep apnea hypopnea syndrome. 2. Obesity, BMI 42.1. 3. Asthma. 4. Hypertension. 5 acid reflux. 6 . Allergies. 7. History of anxiety. 8. History of psoriasis. 9 . History of psoriatic arthritis. 10. Status post tonsillectomy. 11. Status post nasal surgery in 2023. 12. Status post treatment for broken right ankle in 2024. PLAN: 1. Polysomnography for evaluation of patient's breathing during sleep. 2. Following plan after reading sleep study. 3. Preferable position during sleep on the side. 4. No driving if patient feels any sleepiness. Patient is aware of civil and criminal liability for unsafe driving. 5. Sleep hygiene with regular sleep time for at least 7.5-8 hours. 6. Watching and losing weight. Thank you very much for referring this patient for consultation. Sincerely, Fred Hood MD, PhD, FAASM. Diplomat of [place], Sleep Medicine Board by [place] W[employer] of [facility] [place] cc: Peter Lua DO Past Medical History Past Medical History: Asthma, GERD/Reflux, Hypertension, Skin Disorder Additional Past Medical History / Comment(s): Psoriasis, Psoriatic Arthritis, fingers crooked. Wears support hose, bad circulation in legs, hx kidney stones. History of Any Multi-Drug Resistant Organisms: MRSA Date of last positivie culture/infection: 11/15/24 MDRO Source:: rt ankle Additional Past Surgical History / Comment(s): EGD. Kidney stone surgery, nose surgery Past Anesthesia/Blood Transfusion Reactions: Family History of Problems w/ Anesthesia Additional Past Anesthesia/Blood Transfusion Reaction / Comment(s): "Mom heart went out of rhythm." Past Psychological History: No Psychological Hx Reported Smoking Status: Never smoker Past Alcohol Use History: Rare Past Drug Use History: None Reported - Past Family History Mother Family Medical History: Cancer, Hyperlipidemia, Hypertension, Osteoarthritis (OA) Additional Family Medical History / Comment(s): Bladder cancer. Father Family Medical History: Hyperlipidemia, Hypertension, Osteoarthritis (OA) Medications and Allergies Home Medications Medication Instructions Recorded Confirmed Type Gabapentin 300 mg PO DAILY 05/23/20 07/14/24 History Pantoprazole [Protonix] 40 mg PO BID 05/23/20 07/14/24 History Albuterol Inhaler [Ventolin Hfa 2 puff INHALATION RT-Q4H PRN 07/14/24 07/14/24 History Inhaler] Budesonide/Formoterol Fumarate 2 puff INHALATION RT-BID 07/14/24 07/14/24 History [Symbicort 160-4.5 Mcg Inhaler] Celecoxib [CeleBREX] 100 mg PO BID 07/14/24 07/14/24 History Cetirizine HCl [Zyrtec] 10 mg PO DAILY 07/14/24 07/14/24 History Fluticasone Nasal [place] [Flonase 1 - 2 spray EA NOSTRIL DAILY PRN 07/14/24 07/14/24 History Nasal [place]] Furosemide [Lasix] 20 mg PO DAILY 07/14/24 07/14/24 History Montelukast [Singulair] 10 mg PO DAILY 07/14/24 07/14/24 History Mv-Min/Folic/K1/Lycopen/Lutein 1 tab PO DAILY 07/14/24 07/14/24 History [Centrum Silver Men Tablet] Potassium Chloride ER [K-Dur 10] 10 meq PO DAILY 07/14/24 07/14/24 History Semaglutide [Rybelsus] 7 mg PO DAILY 07/14/24 07/14/24 History Tamsulosin [Flomax] 0.4 mg PO DAILY 07/14/24 07/14/24 History Valsartan/Hydrochlorothiazide 1 tab PO DAILY 07/14/24 07/14/24 History [Valsartan-Hctz 160-12.5 mg Tab] Aspirin 325 mg PO BID #60 tab 07/17/24 Rx HYDROcodone/APAP 5-325MG [[place] 1 tab PO Q6HR PRN #18 tab 07/17/24 Rx 5-325] Sennosides/Docusate Sodium [Senna 2 each PO DAILY PRN #30 tab 07/17/24 Rx Plus 8.6-50 mg Tablet] Allergies Allergy/AdvReac Type Severity Reaction Status Date / Time No Known Allergies Allergy Verified 07/16/24 14:23 Physical Exam Vitals: Vital Signs Temp Pulse Resp BP Pulse Ox 12/06/24 10:43 98.1 F 78 16 111/81 97 Intake and Output 0612/06/24 12/06/24 22:59 06:59 14:59 Other: Weight 143.789 kg Sleep Note - Sleep Data ESS Total: 0 - Sleep Note Sleep Note: Temperature: 98.1 F Pulse Rate: 78 Respiratory Rate: 16 Blood Pressure: 111/81 SpO2: 97 Height: 6 ft 0.7 in Weight: 143.789 kg BMI: Neck Circumference: 19
== END ==
LOC: 3 N SLEEP 10:28
PROVIDERS: ATTEND Internal Medicine
DX: G47.33 Obstructive sleep apnea (adult) (pediatric) (principal); E66.9 Obesity, unspecified; Z68.41 Body mass index [BMI] 40.0-44.9, adult; J45.909 Unspecified asthma, uncomplicated; K21.9 Gastro-esophageal reflux disease without esophagitis; T78.40XA Allergy, unspecified, initial encounter; F41.9 Anxiety disorder, unspecified; Z90.89 Acquired absence of other organs; Z87.39 Personal history of other diseases of the musculoskeletal system and connective tissue; Z98.890 Other specified postprocedural states; Z87.81 Personal history of (healed) traumatic fracture
CPT/HCPCS: 99211